=== PATIENT | male | born 1950 | race Caucasian/White ===

== ENCOUNTER 2018-07-31 07:50 | Day surgery (SDC) | payer MEDICARE ==
[~2018-07-31] VITALS: Ht 177.8 cm; Wt 108.4 kg
[~2018-07-31 07:50] MED LIST: AMLO10TA5 PO; ASPI1TAB PO; ASPI81TA45 PO; ATOR80TA59 PO; CHLO25TA PO; CLON0.2T PO; CLON3PA TOP; CRES20TA PO; HYDR25TAB PO; LEVA1TAB2 PO; METF10004 PO; METO200T28 PO; RAMI1CAP26 PO; TELM1TAB37 PO; TYLE325T5 PO; [UNRECOGNIZED DRUG - CODE] PO
[2018-07-31] MEDS ORDERED: LIDOCAINE 2% INJ 100 MG/5 ML SDV (FOR ANES.) As Ordered ONE (07:51)
[2018-07-31] MEDS ORDERED: PROPOFOL 200 MG/20 ML VIAL As Ordered ONE ×2 (07:52→09:12)
[2018-07-31] MEDS ORDERED: NS 1,000 ML IV SCH (08:45)
--- NOTE | 2018-07-31 09:23 | ROOR ---
Patient Name: Glenroy Juares Procedure Date: 07/31/2018 8:58 AM Date of : 1950 Age: 67 Room: [facility] Gender: Male Note Status: Finalized Procedure: Total Colonoscopy to Cecum Indications: High risk colon cancer surveillance: Personal history of colonic polyps Providers: Dylan Luz MD Referring MD: Alireza Callahan MD Requesting Provider: Medicines: Monitored Anesthesia Care Complications: No immediate complications. Procedure: Pre-Anesthesia Assessment: - The heart rate, respiratory rate, oxygen saturations, blood pressure, adequacy of pulmonary ventilation, and response to care were monitored throughout the procedure. The Colonoscope was introduced through the anus and advanced to the cecum, identified by appendiceal orifice and ileocecal valve. The colonoscopy was performed without difficulty. The patient tolerated the procedure well. The quality of the bowel preparation was excellent. Findings: The perianal and digital rectal examinations were normal. Non-bleeding internal hemorrhoids were found during retroflexion. The hemorrhoids were small and Grade I (internal hemorrhoids that do not prolapse). No other significant abnormalities were identified in a careful examination of the remainder of the colon. The exam was otherwise without abnormality on direct and retroflexion views. Impression: - Non-bleeding internal hemorrhoids. - The examination was otherwise normal on direct and retroflexion views. - No specimens collected. - The exam was otherwise normal to the cecum. Recommendation: - Patient has a contact number available for emergencies. The signs and symptoms of potential delayed complications were discussed with the patient. Return to normal activities tomorrow. Written discharge instructions were provided to the patient. - High fiber diet. - Discharge patient to home. - Continue present medications. - Repeat colonoscopy in 5 years for surveillance. - Return to referring physician. - The findings and recommendations were discussed with the patient's family. Dylan Luz MD Dylan Luz MD 07/31/2018 9:22:43 AM This report has been signed electronically. Number of Addenda: 0 Note Initiated On: 07/31/2018 8:58 AM Estimated Blood Loss: Estimated blood loss: none.
[2018-07-31 09:40] VITALS: BP 128/73
== END 2018-07-31 09:46 | disposition home or self-care (01) ==
LOC: M OPP 07:50
PROVIDERS: ATTEND Internal Medicine Gastroenterology
DX: Z86.010 Personal history of colon polyps (principal); K64.0 First degree hemorrhoids; E11.9 Type 2 diabetes mellitus without complications; Z79.82 Long term (current) use of aspirin; Z79.84 Long term (current) use of oral hypoglycemic drugs; Z79.899 Other long term (current) drug therapy; Z91.018 Allergy to other foods

== ENCOUNTER 2019-08-16 20:06 | Emergency (ER) | payer MEDICARE ==
[~2019-08-16] VITALS: Ht 180.3 cm; Wt 113.4 kg
[~2019-08-16 20:06] MED LIST changes: -ASPI1TAB PO; +ASPI81TA26 PO; +CLON0.3D2 TOP; -CLON3PA TOP; -CRES20TA PO; +CRES20TA2 PO; +HYDR-2541 PO; -HYDR25TAB PO
[2019-08-16] MEDS ORDERED: METF750T36 (20:17)
[2019-08-16 20:55] LABS: HEMATOCRIT 45.7 % (42.0-52.0); HEMOGLOBIN 15.5 g/dl (13.5-17.5); MEAN CORPUSCULAR HEMOGLOBIN 31.4 pg (27.0-33.0); MEAN CORPUSCULAR HGB CONC 33.9 g/dl (32.0-36.5); MEAN CORPUSCULAR VOLUME 92.7 fl (80.0-96.0); PLATELET COUNT, AUTOMATED 241 10^3/uL (150-450); RED BLOOD COUNT 4.93 10^6/uL (4.30-6.10)
[2019-08-16 21:15] LABS: ATYPICAL LYMPH 3 % (0-5); BASOPHILS 1 % (0-1); EOSINOPHILS 2 % (0-3); LYMPHOCYTES 25 % (16-44); MONOCYTES 12 % (0-5); NEUTROPHILS 57 % (28-66)
[2019-08-16 21:16] LABS: ANISOCYTOSIS 1+; HYPOCHROMASIA 1+
[2019-08-16 21:17] LABS: OVALOCYTES 1+; PLATELET ESTIMATE NORMAL (NORMAL); TEAR DROP CELLS 2+
[2019-08-16 21:31] LABS: BLOOD UREA NITROGEN 46 MG/DL (7-18); CALCIUM LEVEL 9.2 MG/DL (8.8-10.2); CARBON DIOXIDE LEVEL 24 MEQ/L (21-32); CHLORIDE LEVEL 101 MEQ/L (98-107); CK-MB VALUE MASS 1.4 NG/ML (<3.6); CPK CREATINE PHOSPHOKINASE 257 U/L (39-308); CREATININE FOR GFR 1.74 MG/DL (0.70-1.30); GLUCOSE, FASTING 187 MG/DL (70-100); MAGNESIUM LEVEL 2.5 MG/DL (1.8-2.4); MB/CK RELATIVE INDEX 0.54 (< OR =4); POTASSIUM SERUM 3.7 MEQ/L (3.5-5.1); SODIUM LEVEL 135 MEQ/L (136-145); TROPONIN I < 0.02 NG/ML (< 0.10)
[2019-08-16 22:00] VITALS: BP 153/74
--- NOTE | 2019-08-17 20:30 | ECGEPIP ---
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
== END 2019-08-16 22:22 | disposition home or self-care (01) ==
LOC: M ED 20:06
DX: I49.3 Ventricular premature depolarization (principal); I44.7 Left bundle-branch block, unspecified; N18.3 Chronic kidney disease, stage 3 (moderate); I10 Essential (primary) hypertension; E11.9 Type 2 diabetes mellitus without complications; E78.5 Hyperlipidemia, unspecified; Z79.82 Long term (current) use of aspirin; Z79.84 Long term (current) use of oral hypoglycemic drugs; Z79.899 Other long term (current) drug therapy; Z91.018 Allergy to other foods

== ENCOUNTER → 2019-08-20 | Outpatient (CLI) | payer MEDICARE ==
[~2019-08-20] MED LIST changes: +METF750T36
--- NOTE | 2019-08-22 15:36 | HOLTMON ---
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 Three and one half hours was artifactual. Underlying rhythm was sinus. Rate varied from 47 to 125 beats per minute. There were no significant pauses noted. Patient experienced 168 supraventricular ectopic beats. Most notably patient experienced 13,870 ventricular ectopic beats, approximately 700 ventricular ectopic beats per hour. There were no significant runs. Patient had 36 minutes of trigeminy. Diary palpitations were associated with ventricular ectopy, but not out of the ordinary compared to the patient's baseline. The patient's self described "constant" palpitaions may be related to frequent ventricular ectopy. These results were conveyed to Dr. Reynolds Electronically Signed on 08-22-2019 15:35:53 EST by Yosef Hampton
== END ==
LOC: M EKG 10:51
PROVIDERS: ATTEND Family Medicine
DX: R00.2 Palpitations (principal)

== ENCOUNTER 2024-02-13 11:46 | Day surgery (SDC) | payer MEDICARE ==
[~2024-02-13] VITALS: Ht 177.8 cm; Wt 98.4 kg
[~2024-02-13 11:46] MED LIST changes: +ALLO100T PO; -AMLO10TA5 PO; +AMLO1TAB25 PO; +CHLO125TA PO; +EZET10TA58 PO; +JARD1TAB PO; +METF-838 PO; -METF750T36; +METF750T36 PO; +METO200T15 PO; -METO200T28 PO; +RAMI10CA64 PO; -RAMI1CAP26 PO
[2024-02-13] MEDS ORDERED: LIDOCAINE 2% 100MG/5ML SDV (FOR ANES.) As Ordered ONE (12:07)
[2024-02-13] MEDS ORDERED: propofoL 200 MG/20 ML VIAL As Ordered ONE (12:07)
[2024-02-13] MEDS: NS 1,000 ML IV ONE (12:26)
[2024-02-13 13:22] VITALS: BP 140/65; TEMP 96.4; O2SAT 95
== END 2024-02-13 13:34 | disposition home or self-care (01) ==
LOC: M OPP 11:46
PROVIDERS: ATTEND Internal Medicine Gastroenterology
DX: Z86.010 Personal history of colon polyps (principal); D12.3 Benign neoplasm of transverse colon; K64.0 First degree hemorrhoids; K57.30 Diverticulosis of large intestine without perforation or abscess without bleeding; E11.9 Type 2 diabetes mellitus without complications; G47.33 Obstructive sleep apnea (adult) (pediatric); Z99.89 Dependence on other enabling machines and devices; Z79.02 Long term (current) use of antithrombotics/antiplatelets; Z79.82 Long term (current) use of aspirin; Z79.84 Long term (current) use of oral hypoglycemic drugs; Z79.899 Other long term (current) drug therapy; Z91.018 Allergy to other foods

== ENCOUNTER → 2025-01-27 | Outpatient (CLI) | payer MEDICARE | LOC: M CARPUL 08:58 | PROVIDERS: ATTEND Registered Nurse | DX: R94.31 Abnormal electrocardiogram [ECG] [EKG] (principal); R55 Syncope and collapse; I49.3 Ventricular premature depolarization ==

== ENCOUNTER → 2025-01-27 | Outpatient (CLI) | payer MEDICARE | LOC: M EKG 10:16 | PROVIDERS: ATTEND Registered Nurse | DX: R55 Syncope and collapse (principal); I49.3 Ventricular premature depolarization ==

== ENCOUNTER → 2025-03-17 | Outpatient (CLI) | payer MEDICARE | LOC: M CARPUL 07:13 | PROVIDERS: ATTEND Internal Medicine Cardiovascular Disease | DX: R94.31 Abnormal electrocardiogram [ECG] [EKG] (principal); I44.7 Left bundle-branch block, unspecified | CPT/HCPCS: 78451; 93017; A9500; J2785 ==

== ENCOUNTER → 2025-03-30 | Outpatient (CLI) | payer MEDICARE | LOC: M PLAIMG 08:31 | PROVIDERS: ATTEND Registered Nurse | DX: R55 Syncope and collapse (principal); R94.31 Abnormal electrocardiogram [ECG] [EKG]; I11.9 Hypertensive heart disease without heart failure ==